=== PATIENT | female | born 1945 | race Caucasian/White ===

== ENCOUNTER → 2017-10-01 | Outpatient (CLI) | payer MEDICARE, BC, OTHER ==
[~2017-10-01] MED LIST: ALPR-475 PO; VALS80TA3 PO
== END | disposition home or self-care (01) ==
LOC: CFH 12:56
PROVIDERS: ATTEND Specialist
DX: Z85.3 Personal history of malignant neoplasm of breast (principal); Z90.11 Acquired absence of right breast and nipple
CPT/HCPCS: G0206-LT

== ENCOUNTER → 2019-11-02 | Outpatient (CLI) | payer MEDICARE, BC ==
[~2019-11-02] MED LIST changes: -ALPR-475 PO; +ALPR0.5T7 PO
== END | disposition home or self-care (01) ==
LOC: CFH 12:26
PROVIDERS: ATTEND Internal Medicine Hematology & Oncology
DX: R92.8 Other abnormal and inconclusive findings on diagnostic imaging of breast (principal); Z90.11 Acquired absence of right breast and nipple
CPT/HCPCS: 77065; G0279

== ENCOUNTER 2020-12-09 12:13 | Outpatient (CLI) | payer MEDICARE, BC, OTHER | END 2020-12-09 23:59 | disposition home or self-care (01) | LOC: CFH 12:13 | PROVIDERS: ATTEND Internal Medicine Hematology & Oncology | DX: C50.411 Malignant neoplasm of upper-outer quadrant of right female breast (principal); N64.4 Mastodynia; N63.0 Unspecified lump in unspecified breast | CPT/HCPCS: 76642; 77061; 77065; G0279 ==

== ENCOUNTER → 2021-01-30 | Outpatient (CLI) | payer MEDICARE, BC, OTHER ==
[~2021-01-30] MED LIST changes: +GADOTERATE 7.5 MMOL/15 ML VIAL ONE
== END | disposition home or self-care (01) ==
LOC: CFH 12:31
PROVIDERS: ATTEND Internal Medicine Hematology & Oncology
DX: C50.411 Malignant neoplasm of upper-outer quadrant of right female breast (principal); N64.4 Mastodynia; K76.89 Other specified diseases of liver
CPT/HCPCS: 77049; A9575; C8937; C8908